=== PATIENT | male | born 1975 | race Caucasian/White ===

== ENCOUNTER 2018-12-09 04:10 | Emergency (ER) | payer OTHER ==
[2018-12-09 04:14] VITALS: BMI 20.6
[2018-12-09] MEDS ORDERED: TDAP Vaccine 0.5 mL Syr IM ONE (04:55)
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
--- NOTE | 2018-12-09 07:26 | ED PDOC ---
Physical Exam Vital Signs Temp Pulse Resp BP Pulse Ox 12/09/18 06:44 84 18 101/70 98 12/09/18 04:14 97.6 F 66 16 100 Medical Decision Making ED Course and Treatment: 12/09/18 07:00 Case endorsed to me by Dr. Oliva. Currently awaiting sobriety. 12/09/18 12:56 pt observed 7+ hours ambulatory steady gait ct neg. clincaly sober asking for dc. - RAD Interpretation Radiology Orders: 12/09/18 05:07 HEAD W/O CONTRAST [CT] Stat - Medication Orders Current Medication Orders: Discontinued Medications Tetanus/Reduced Diphtheria/Acell Pertussis (Boostrix Vaccine Inj) 0.5 ml IM .ONCE ONE Stop: 12/09/18 04:56 - Scribe Statement The provider has reviewed the documentation as recorded by the Noel Kidd Provider Scribe Attestation: All medical record entries made by the Scribe were at my direction and personally dictated by me. I have reviewed the chart and agree that the record accurately reflects my personal performance of the history, physical exam, medical decision making, and the department course for this patient. I have also personally directed, reviewed, and agree with the discharge instructions and disposition. Disposition/Present on Arrival - Present on Arrival Any Indicators Present on Arrival: No History of DVT/PE: No History of Uncontrolled Diabetes: No Urinary Catheter: No History of Decub. Ulcer: No History Surgical Site Infection Following: None - Disposition Have Diagnosis and Disposition been Completed?: Yes Diagnosis: Alcohol abuse, Head injury Disposition: HOME/ ROUTINE Disposition Time: 12:00 Patient Problems: Current Active Problems Problem Status Onset Alcohol abuse Acute Head injury Acute Condition: STABLE Discharge Instructions (ExitCare): Alcohol Use - When Is Drinking a Problem?, Minor Head Injury Additional Instructions: return to any er with worsening. Referrals: [facility] [Outside] - Follow up with primary [facility] [place]Outside] - Follow up with primary Forms: [employer] ([place])
[2018-12-09 08:32] VITALS: RESP 16
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
[2018-12-09 12:33] VITALS: BP 99/72; PULSE 81; TEMP 98; O2SAT 99
== END 2018-12-09 13:11 | disposition home or self-care (01) ==
LOC: ED 04:10
DX: S09.90XA Unspecified injury of head, initial encounter (principal); Y09 Assault by unspecified means; F10.10 Alcohol abuse, uncomplicated; F17.210 Nicotine dependence, cigarettes, uncomplicated